=== PATIENT | female | born 1985 | race Caucasian/White ===

== ENCOUNTER → 2017-03-22 | Outpatient (CLI) | payer BC ==
--- NOTE | 2017-05-24 08:21 | CODING QUERY NO DIAGNOSIS ---
TREATMENT RENDERED WITHOUT A DIAGNOSIS To promote full compliance with coding requirements relating to patient care, physician participation is requested in all cases of automotive internet sales consultant uncertainty. Please assist us with providing a diagnosis/symptom for the test(s) below: A diagnosis/symptom was not documented on your Order. A valid diagnosis/symptom is required to bill all insurances. Please remember that we are unable to code a diagnosis of rule out, probable, possible, questionable, or suspected. Tests that require a diagnosis: DOS: 03/22/17 * PAP SMEAR DIAGNOSIS: Provider Signature: Date: Thank you Luna Mendez [facility] [employer] Once completed, please kindly fax back to [phone] For questions please call [phone]
== END | disposition home or self-care (01) ==
LOC: C.PATHSPEC 17:23
PROVIDERS: ATTEND Obstetrics & Gynecology
DX: N87.0 Mild cervical dysplasia (principal)

== ENCOUNTER → 2017-11-22 | Outpatient (CLI) | payer BC | END | disposition home or self-care (01) | LOC: C.LAB1850 09:46 | PROVIDERS: ATTEND Obstetrics & Gynecology | DX: Z34.92 Encounter for supervision of normal pregnancy, unspecified, second trimester (principal); Z3A.00 Weeks of gestation of pregnancy not specified ==

== ENCOUNTER 2018-04-24 07:57 | Inpatient (IN) ==
[2018-04-24] MEDS ORDERED: LACTATED RINGER'S 1,000 ML IV PRN ×3 (08:51→17:38)
[2018-04-24] MEDS ORDERED: OXYTOCIN 30 UNITS/500 ML BAG IV PRN ×2 (08:51→08:53)
[2018-04-24 09:28] LABS: Hematocrit (blood only) 38.4 % (37-47); Mean Platelet Volume 10.7 fL (7.4-10.4); Platelet Count 162 K/uL (130-400); RDW Coefficient of Variation 12.7 % (11.5-14.5); RDW Standard Deviation 44.6 fL (36.4-46.3); Red Blood Count 3.92 M/uL (4.2-5.4); White Blood Count 12.27 K/uL (4.8-10.8)
[2018-04-24 09:32] LABS: Mean Corpuscular Hgb Conc 33.9 g/dL (32-36)
[2018-04-24] MEDS: LACTATED RINGER'S 1,000 ML IV SCH ×3 (10:08→21:41)
--- NOTE | 2018-04-24 11:10 | History & Physical Report ---
Date of Service April 24, 2018 Assessment & Plan (1) Chronic hypertension affecting : 32yo @ 38 6/7 with cHTN for IOL Savage removed easily, start pitocin. OK for epidural if/when she desires. History of Present Illness Chief Complaint: IOL for cHTN Primary Care Provider: Licha Ambriz 32yo @ 38 6/7 for IOL due to cHTN. also complicated by LSIL. Rec'd savage balloon last night, still in place this morning. + movement, no vaginal bleeding, no leaking, no regular ctx. Allergies Allergy/AdvReac Type Severity Reaction Status Date / Time No Known Allergies Allergy Unverified 04/23/18 19:58 Home Medications Home Medications Medication Instructions Recorded Confirmed Type aspirin [Deandre Chewable Aspirin] 81 mg PO DAILY 04/23/18 04/24/18 History colesevelam [WelChol] 625 mg PO DAILY 04/23/18 04/24/18 History metoprolol succinate 50 mg PO DAILY 04/23/18 04/24/18 History vit-iron fum-folic ac 1 tab PO DAILY 04/23/18 04/24/18 History [ Vitamin] Patient History Medical History Hyperlipidemia since age 20 Hypertension unsure if hypertension is "real" pt says it may be situational. was originally put on Metoprolol for anxiety/palpitations LGSIL on Pap smear of cervix March 2017. Will have 6 week PP follow up Family History Father Heart attack Social History marital status: Single Current Living Situation: Parent and Family Feels Safe at Home: Yes Safety Concerns: Feels Safe At This Time Smoking Status: Never smoker Hx Alcohol Use: No Hx Substance Use: No Beliefs That Will Affect Care: None Preferred Language: Wallisian Communication Ability: Effective Naval Aircrewman Tactical Helicopter Required: No Review of Systems All systems reviewed & are unremarkable except as noted in HPI & below Physical Exam 2 Vital Signs (Past 24 Hours): Last Vital Signs Temp 36.4 C L 04/24/18 08:20 Pulse 76 04/24/18 10:32 Resp 20 04/24/18 08:20 BP 140/75 04/24/18 10:32 Physical Exam: Gen: AAOx3 NAD CV: RRR L: CTA Abd: soft, gravid, NTTP Ext: no edema SVE: savage removed with gentle tug. Cervix 2-3/50/-3 Small amount of bloody show. FHT: Cat 1 [place]: no ctx.
--- NOTE | 2018-04-24 13:30 | Obstetrical Progress Note ---
Date of Service April 24, 2018 Subjective Comfortable. FHT Cat 1. [place] Q 2 min SVE 3/70/-2 AROM clear fluid. Continue labor. Physical Exam 2 Vital Signs (Past 24 Hours): Last Vital Signs Temp 37.0 C 04/24/18 11:35 Pulse 77 04/24/18 12:36 Resp 20 04/24/18 12:35 BP 147/72 H 04/24/18 12:36
--- NOTE | 2018-04-24 16:16 | Anesthesiology Consultation ---
Date of Service April 24, 2018 Assessment & Plan Chart Review Chart Review: Patient NOT seen in Pre Admission Testing and Acceptable Risk for Labor Epidural Consults Requested Denies taking any blood thinner or having any h/o major bleeding disorder ASA ASA2 Proposed Anesthesia Anesthesia Type: Labor Epidural Risk / Benefits Reviewed With: PT / POA / Parent / Guardian, Accepts Plan and Informed Consent Obtained NPO Date Last Intake of Fluids: 04/24/18 Time Last Intake of Fluids: 16:15 Date Last Intake of Solids: 04/24/18 Time Last Intake of Solids: 07:30 History Height/Weight Height: 1.68 m Weight: 70.307 kg Allergies Allergy/AdvReac Type Severity Reaction Status Date / Time No Known Allergies Allergy Unverified 04/23/18 19:58 Medications Home Medications Medication Instructions Recorded Confirmed Last Taken aspirin [Deandre Chewable Aspirin] 81 mg PO DAILY 04/23/18 04/24/18 04/23/18 12:00 colesevelam [WelChol] 625 mg PO DAILY 04/23/18 04/24/18 04/23/18 09:00 metoprolol succinate 50 mg PO DAILY 04/23/18 04/24/18 04/23/18 22:30 vit-iron fum-folic ac 1 tab PO DAILY 04/23/18 04/24/18 04/23/18 20:00 [ Vitamin] Active Medications Generic Name Dose Route Start Last Admin Trade Name Freq PRN Reason Stop Dose Admin Lactated Ringer's 1,000 mls @ 125 mls/hr 04/24/18 09:00 04/24/18 10:08 Lr IV 04/26/18 08:59 125 mls/hr .Q8H STEPHANY Administration Oxytocin 30 units in 500 mls @ 13 mls/hr 04/24/18 08:53 04/24/18 15:30 Pitocin IV 05/24/18 08:52 1.02 units/hr .Q24H PRN 17 mls/hr Labor Induction/Augmentation Titration Protocol 0.78 UNITS/HR Beta Margie Beta Margie Taken Within 24 Hours: Yes Past Medical History Medical History Hyperlipidemia since age 20 Hypertension unsure if hypertension is "real" pt says it may be situational. was originally put on Metoprolol for anxiety/palpitations LGSIL on Pap smear of cervix March 2017. Will have 6 week PP follow up Past Family History Family History Father Heart attack Past Surgical History Pt denies any h/o previous anesthesia or surgeries Past Anesthesia History No Family Hx of Anesthesia Complications History of PONV No Motion Sickness Screening History of Motion Sickness: No Social History Smoking Status: Never smoker Do You Dip or Chew Tobacco: No Hx Alcohol Use: No Hx Substance Use: No Exercise / Class Metabolic Activity II 4-5 Yardwork/Stairs/Walk [place] Physical Exam Vital Signs Last Vital Signs Temp 36.6 C 04/24/18 14:15 Pulse 91 H 04/24/18 15:09 Resp 20 04/24/18 14:17 BP 143/79 H 04/24/18 15:09 ENMT Mouth: no TMJ abnormality and no TMJ clicking Thyromental Distance: > or= 3.5 Finger Breadths Mallampati Class: II Neck neck extension not limited Respiratory Auscultation: lungs clear to auscultation bilaterally Cardiovascular Rate/Rhythm: regular rate and regular rhythm Psychiatric Orientation: alert and oriented x 3 Testing Laboratory Results 04/24/18 09:14
[2018-04-24] MEDS ORDERED: BUPIVACAINE 0.25% 30 ML VIAL ONE (16:58)
[2018-04-24] MEDS ORDERED: ePHEDrine sulfate 50 MG/ML AMP ONE (16:58)
[2018-04-24] MEDS ORDERED: fentaNYL citrate 100 MCG/2 ML VIAL ONE (16:59)
[2018-04-24] MEDS ORDERED: fentaNYL 2MCG/ML ROPIV 1.25MG/ML 100 ML BAG EPI ONE (16:59)
[2018-04-24] MEDS ORDERED: ONDANSETRON INJ 2 MG/ML 2 ML VIAL IV PRN (17:38)
[2018-04-24] MEDS ORDERED: NALOXONE HCL 0.4 MG/1 ML VIAL/CARP IV PRN (17:38)
[2018-04-24] MEDS ORDERED: NALOXONE HCL 1 MG in SODIUM CHLORIDE 0.9% 1000ML 1,000 ML IV PRN (17:38)
[2018-04-24] MEDS ORDERED: NALBUPHINE HCL INJ 10 MG/ML AMP IV PRN (17:38)
[2018-04-24] MEDS ORDERED: fentaNYL 2MCG/ML ROPIV 1.25MG/ML 100 ML BAG EPI PRN (17:38)
[2018-04-24] MEDS ORDERED: PROMETHAZINE HCL 12.5 MG in SODIUM CHLORIDE 0.9% 50 ML IV PRN (17:38)
[2018-04-24] MEDS ORDERED: ePHEDrine sulfate 50 MG/ML AMP IV PRN (17:38)
[2018-04-24] MEDS ORDERED: DiphenhydrAMINE HCL 50 MG/ML VIAL IV PRN (17:38)
[2018-04-24] MEDS ORDERED: METOPROLOL SUCC 50MG EXT REL TAB PO ONE (20:00)
--- NOTE | 2018-04-24 21:27 | Obstetrical Progress Note ---
Date of Service April 24, 2018 Subjective Starting to feel constant pressure. FHT: variable/early decels [place]: Q 2 SVE: small anterior lip Ok to start to push when she feels urge. Physical Exam 2 Vital Signs (Past 24 Hours): Last Vital Signs Temp 36.8 C 04/24/18 19:06 Pulse 110 H 04/24/18 21:24 Resp 18 04/24/18 20:00 BP 139/72 04/24/18 21:09 Pulse Ox 96 04/24/18 21:24
--- NOTE | 2018-04-25 01:21 | Procedure Note ---
Vaginal Delivery Summary Date of Service April 25, 2018 Vaginal Delivery Summary Predelivery diagnoses: 32-year-old at 39 weeks, chronic hypertension Postdelivery diagnoses: Same Procedure: Spontaneous vaginal delivery, repair of first-degree perineal laceration and superficial left periurethral laceration Complications: None Estimated blood loss: 300 mL Surgeon: Dr. Go Findings: Viable female , Apgars 7 and 9. Weight pending, please see nursery records. Description of delivery: Patient progressed to complete with epidural anesthesia. She then began to push. She spontaneously vaginally delivered a viable female from the cephalic presentation. Head delivered in the left occiput anterior position, nuchal cord x1 was noted this was easily reduced. The anterior shoulder delivered followed by the posterior shoulder followed by the body. The baby was placed on mother's abdomen, and the cord was doubly clamped and cut. Cord blood was obtained for public cord banking donation. Cord blood was also obtained for the pathology lab. The placenta was then delivered spontaneously intact with a three-vessel cord. The bladder was drained using a red rubber catheter for 900 cc of clear yellow urine. The uterus and vagina were swept of all clots and debris. Pitocin was given. The cervix vagina and perineum were inspected and a first degree perineal laceration was noted and repaired in standard fashion with 3-0 Vicryl. Additionally, there was a small superficial area of bleeding to the left of the urethra, this was made hemostatic with a [id number] stitch of 3-0 Vicryl. Excellent hemostasis was observed, and sponge/needle/instrument counts were correct x2 at the conclusion of the delivery.
[2018-04-25] MEDS ORDERED: HYDROCORTISONE ACETATE 25 MG SUPP PR PRN (01:31)
[2018-04-25] MEDS ORDERED: SUPERCREAM 0.870% 15 GM JAR EXT PRN (01:31)
[2018-04-25] MEDS ORDERED: OXYCODONE/ACETAMINOPHEN 5mg/325mg TAB PO PRN (01:31)
[2018-04-25] MEDS ORDERED: ACETAMINOPHEN 325 MG TAB PO PRN (01:31)
[2018-04-25] MEDS ORDERED: IBUPROFEN 600 MG TAB PO PRN (01:31)
[2018-04-25] MEDS ORDERED: OXYTOCIN 30 UNITS/500 ML BAG IV PRN (01:31)
[2018-04-25] MEDS ORDERED: BENZOCAINE 20% AER SPR 82.5 GM CAN EXT PRN (01:31)
--- NOTE | 2018-04-25 08:40 | Anesthesia Procedure Note ---
Date of Service April 25, 2018 Anesthesia Post Epidural Note Vital Signs Vital Signs: Temp Pulse Pulse Resp BP BP Pulse Ox 04/25/18 03:45 36.9 C 106 H 16 132/76 04/25/18 03:30 36.9 C 106 H 18 132/76 04/25/18 03:28 106 H 132/76 04/25/18 03:22 104 H 134/67 04/25/18 03:07 99 H 127/62 04/25/18 02:52 95 H 132/62 04/25/18 02:38 101 H 138/69 04/25/18 02:35 101 H 18 138/69 04/25/18 02:22 103 H 116/56 L 04/25/18 02:07 101 H 118/67 04/25/18 02:05 101 H 18 118/67 04/25/18 01:52 99 H 116/64 04/25/18 01:50 99 H 18 116/64 04/25/18 01:37 97 H 130/75 04/25/18 01:35 97 H 18 130/75 04/25/18 01:22 100 H 124/72 04/25/18 01:20 100 H 18 124/72 04/25/18 01:07 105 H 124/86 04/25/18 01:05 37.0 C 18 04/25/18 01:03 114 H 161/74 H 04/25/18 00:59 111 H 86 L 04/25/18 00:58 107 H 89 L 04/25/18 00:54 103 H 100 04/25/18 00:52 110 H 144/79 H 04/25/18 00:49 109 H 100 04/25/18 00:44 109 H 99 04/25/18 00:39 115 H 98 04/25/18 00:37 100 H 141/84 H 04/25/18 00:34 106 H 98 04/25/18 00:29 96 H 97 04/25/18 00:24 96 H 96 04/25/18 00:20 98 H 94 04/25/18 00:19 102 H 93 04/25/18 00:15 92 H 85 L 04/25/18 00:14 88 97 04/25/18 00:09 90 97 04/25/18 00:08 88 126/81 04/25/18 00:04 91 H 94 04/25/18 00:03 99 H 91 04/24/18 23:59 88 96 04/24/18 23:56 91 H 87 L 04/24/18 23:54 90 97 04/24/18 23:52 93 H 126/59 L 04/24/18 23:50 98 H 94 04/24/18 23:49 97 H 96 04/24/18 23:44 95 H 95 04/24/18 23:39 99 H 75 L 04/24/18 23:38 89 94 04/24/18 23:37 96 H 125/66 04/24/18 23:34 96 H 98 04/24/18 23:30 36.9 C 98 H 20 93 04/24/18 23:29 95 H 97 04/24/18 23:24 91 H 96 04/24/18 23:23 88 130/77 04/24/18 23:21 98 H 93 04/24/18 23:19 94 H 94 04/24/18 23:15 92 H 94 04/24/18 23:14 92 H 95 04/24/18 23:09 96 H 95 04/24/18 23:08 106 H 94 04/24/18 23:04 103 H 99 04/24/18 23:01 100 H 94 04/24/18 22:59 97 H 96 04/24/18 22:56 106 H 94 04/24/18 22:54 99 H 96 04/24/18 22:53 99 H 134/74 04/24/18 22:49 100 H 95 04/24/18 22:45 91 H 94 04/24/18 22:44 101 H 94 04/24/18 22:39 111 H 94 04/24/18 22:37 93 H 130/66 04/24/18 22:34 104 H 92 04/24/18 22:29 104 H 98 04/24/18 22:24 103 H 132/79 93 04/24/18 22:19 100 H 97 04/24/18 22:14 99 H 95 04/24/18 22:10 96 H 94 04/24/18 22:09 89 94 04/24/18 22:08 98 H 124/68 04/24/18 22:05 95 H 94 04/24/18 22:04 94 H 94 04/24/18 22:00 89 94 01/03/19 21:59 92 H 94 04/24/18 21:54 90 94 04/24/18 21:53 89 125/66 04/24/18 21:49 93 H 95 04/24/18 21:44 95 H 95 04/24/18 21:42 96 H 94 04/24/18 21:39 114 H 93 04/24/18 21:37 97 H 131/63 04/24/18 21:36 100 H 94 04/24/18 21:34 103 H 96 04/24/18 21:30 18 04/24/18 21:29 104 H 96 04/24/18 21:24 110 H 96 04/24/18 21:23 114 H 90 04/24/18 21:19 104 H 97 04/24/18 21:18 104 H 94 04/24/18 21:14 106 H 97 04/24/18 21:09 105 H 139/72 96 04/24/18 21:04 114 H 95 04/24/18 21:03 130 H 94 04/24/18 21:00 37.0 C 18 04/24/18 20:59 104 H 97 04/24/18 20:55 109 H 94 04/24/18 20:54 99 H 96 04/24/18 20:52 104 H 130/60 04/24/18 20:49 101 H 96 04/24/18 20:44 103 H 95 04/24/18 20:39 98 H 96 04/24/18 20:38 100 H 132/60 04/24/18 20:34 99 H 96 04/24/18 20:29 98 H 95 04/24/18 20:24 111 H 129/71 96 04/24/18 20:19 110 H 95 04/24/18 20:14 107 H 96 04/24/18 20:09 106 H 96 04/24/18 20:08 114 H 126/65 04/24/18 20:04 114 H 97 04/24/18 20:02 119 H 91 04/24/18 20:00 18 04/24/18 19:59 104 H 96 04/24/18 19:54 101 H 95 04/24/18 19:53 93 H 129/75 04/24/18 19:49 102 H 96 04/24/18 19:44 98 H 96 04/24/18 19:39 104 H 97 04/24/18 19:38 106 H 125/74 04/24/18 19:34 105 H 97 04/24/18 19:29 93 H 96 04/24/18 19:24 102 H 97 04/24/18 19:23 109 H 127/67 04/24/18 19:19 108 H 96 04/24/18 19:14 114 H 97 04/24/18 19:09 121 H 96 04/24/18 19:07 108 H 137/70 04/24/18 19:06 36.8 C 20 04/24/18 19:04 95 H 98 04/24/18 18:59 97 H 96 04/24/18 18:54 114 H 95 04/24/18 18:52 104 H 134/74 04/24/18 18:49 93 H 95 04/24/18 18:47 101 H 91 04/24/18 18:44 99 H 95 04/24/18 18:39 95 H 98 04/24/18 18:38 96 H 131/72 04/24/18 18:34 92 H 98 04/24/18 18:29 102 H 97 04/24/18 18:25 104 H 94 04/24/18 18:24 100 H 134/78 97 04/24/18 18:19 110 H 96 04/24/18 18:14 103 H 93 04/24/18 18:13 103 H 93 04/24/18 18:09 89 97 04/24/18 18:08 90 120/64 04/24/18 18:04 101 H 97 04/24/18 17:59 82 98 04/24/18 17:54 84 98 04/24/18 17:51 85 128/67 04/24/18 17:49 97 H 96 04/24/18 17:46 95 H 124/62 04/24/18 17:44 102 H 96 04/24/18 17:43 102 H 133/93 04/24/18 17:42 106 H 92 04/24/18 17:39 95 H 99 04/24/18 17:35 96 H 132/57 L 04/24/18 17:34 107 H 97 04/24/18 17:33 102 H 122/60 04/24/18 17:31 88 137/69 04/24/18 17:29 96 H 136/65 98 04/24/18 17:27 95 H 140/79 04/24/18 17:24 100 H 137/72 98 04/24/18 16:25 77 129/76 04/24/18 16:24 36.6 C 20 04/24/18 15:09 91 H 143/79 H 04/24/18 14:18 75 134/74 04/24/18 14:17 20 04/24/18 14:15 36.6 C 20 04/24/18 13:29 80 141/83 H 04/24/18 12:36 77 147/72 H 04/24/18 12:35 20 04/24/18 11:36 72 118/71 04/24/18 11:35 37.0 C 20 04/24/18 10:32 76 140/75 04/24/18 10:31 20 04/24/18 10:09 76 131/73 04/24/18 09:32 86 127/73 04/24/18 09:31 20 04/24/18 08:53 81 120/72 04/24/18 08:52 20 Notes Mental Status: alert / awake / arousable and participated in evaluation Nausea / Vomiting: adequately controlled Pain: adequately controlled Airway Patency, RR, SpO2: stable & adequate BP & HR: stable & adequate Hydration State: stable & adequate Neuraxial Anesthesia: was administered and sensory block is resolving Anesthetic Complications: no major complications apparent and Pt Satisfied with anesthetic care Epidural: Removed without complications and With tip intact
[2018-04-25] MEDS ORDERED: NON-FORMULARY MEDICATION (Prenatal Vit-Iron Fum-Folic Ac [Prenatal Vitamin] 1 TAB) PO SCH (09:00)
[2018-04-25] MEDS: PRENATAL VITAMIN 1 TAB PO SCH (09:10)
[2018-04-25] MEDS: DOCUSATE SODIUM 100 MG CAP PO SCH ×2 (09:10→20:35)
[2018-04-25] MEDS: FERROUS SULFATE 325 MG TAB PO SCH (09:10)
[2018-04-25] MEDS ORDERED: METOPROLOL SUCC 50MG EXT REL TAB PO SCH (21:00)
--- NOTE | 2018-04-26 06:31 | Obstetrical Progress Note ---
Date of Service <Juve Aguilar DO - Last Filed: 04/26/18 06:44> April 26, 2018 Assessment & Plan <Juve Aguilar DO - Last Filed: 04/26/18 06:44> (1) Vaginal delivery: Continue routine post- care, encourage and ambulation PPD #1 (2) Chronic hypertension affecting : continue with Metroprolol Succinate 50mg PO qHS Last recorded BP Normotensive at 119/77 Day #:: 1 Subjective <Juve Aguilar - Last Filed: 04/26/18 06:44> Ambulation: ambulating normally Voiding: no voiding problems Passing Gas:: Yes Diet Tolerance:: regular diet Lochia:: Small Feeding Type:: breast feeding Current Pain Level(1-10): 0 Lisa states she is doing well this morning, she has no acute complaints or concerns, no acute events overnight. She states she is without difficulty. She denies fever, chills, chest pain, shortness of breath, breast pain, headache. She has no complaints of pain this morning. No nausea or vomiting. Physical Exam <Juve Aguilar DO - Last Filed: 04/26/18 06:44> Vital Signs (Past 24 Hours) Last Vital Signs Temp 36.5 C 04/25/18 23:25 Pulse 78 04/25/18 23:25 Resp 16 04/25/18 23:25 BP 119/77 04/25/18 23:25 Pulse Ox 99 04/25/18 23:25 Constitutional WD/WN, vitals as above cooperative Respiratory normal respiratory effort, lungs clear to auscultation Cardiovascular RRR, no murmur, no edema Gastrointestinal (Abdomen) Percussion/Palpation: abdomen soft; abdomen nontender fundus firm, non-tender, 3cm below umbilicus Skin no rashes, warm and dry Neurologic moves all extremities and awake Psychiatric Eye Contact: good eye contact Affect: euthymic affect Results & Data <Juve Aguilar DO - Last Filed: 04/26/18 06:44> Medications Administered Benzocaine (Dermoplast Pain Relieving [place]) 1 appln EXT PRN PRN PRN Reason: Perineal Discomfort Stop: 05/25/18 01:30 Last Admin: 04/25/18 03:49 Dose: 82.5 appln Docusate Sodium (Colace) 100 mg PO BID STEPHANY Stop: 05/25/18 08:59 Last Admin: 04/25/18 20:35 Dose: 100 mg Admin: 04/25/18 09:10 Dose: 100 mg Ferrous Sulfate (Feosol) 325 mg PO QAM STEPHANY Stop: 05/25/18 08:59 Last Admin: 04/25/18 09:10 Dose: 325 mg Metoprolol Succinate (Toprol Xl) 50 mg PO HS STEPHANY Stop: 05/25/18 20:59 Last Admin: 04/25/18 20:35 Dose: 50 mg Prenat Multivit/[place]/Iron/Folic Ac ( Vitamin) 1 tab PO QAM STEPHANY Stop: 05/25/18 08:59 Last Admin: 04/25/18 09:10 Dose: 1 tab <Regina Mayer MD, FACOG - Last Filed: 04/26/18 07:10> Co-Signing Physician Notes Resident Physician Supervision Note: I interviewed and examined the patient. Discussed with Dr. Aguilar and agree with findings and plan as documented in the note. Any exceptions or clarifications are listed here: Doing well. Routine pp care. Documented By: Regina Mayer MD, FACOG
[2018-04-26 06:42] LABS: Hematocrit (blood only) 32.4 % (37-47); Hemoglobin 10.6 g/dL (12.0-16.0)
[2018-04-26] MEDS: DOCUSATE SODIUM 100 MG CAP PO SCH (07:33)
[2018-04-26] MEDS: PRENATAL VITAMIN 1 TAB PO SCH (07:33)
[2018-04-26] MEDS: FERROUS SULFATE 325 MG TAB PO SCH (07:33)
[2018-04-26] MEDS ORDERED: BISACODYL 5 MG TABEC PO SCH (20:00)
== END 2018-04-26 21:20 | disposition home or self-care (01) | DRG 807 ==
LOC: 4S1 07:57 → 4S2 04-25 04:02

== ENCOUNTER 2024-07-02 08:15 | Inpatient (IN) ==
[2024-07-02] MEDS ORDERED: LIDOCAINE 1% LOCAL 20 ML VIAL INFIL PRN (09:18)
[2024-07-02] MEDS ORDERED: OXYTOCIN 30 UNITS/NSS 30 UNITS/500 ML BAG IV PRN ×2 (09:18→20:13)
[2024-07-02 09:42] LABS: Hematocrit (blood only) 34.6 % (37.0-47.0); Hemoglobin 11.5 g/dl (12.0-16.0); Mean Corpuscular Hemoglobin 29.9 pg (25.0-34.0); Mean Corpuscular Hgb Conc 33.2 g/dL (32.0-36.0); Mean Corpuscular Volume 90.1 fL (80.0-100.0); Mean Platelet Volume 10.7 fL (9.4-12.4); Platelet Count 198 K/uL (130-400); RDW Coefficient of Variation 12.6 % (11.5-14.5); RDW Standard Deviation 41.1 fL (36.4-46.3); Red Blood Count 3.84 M/uL (4.20-5.40)
--- NOTE | 2024-07-02 09:52 | History & Physical Report ---
Date of Service July 02, 2024 Assessment & Plan (1) Encounter for induction of labor: (2) Chronic hypertension during , antepartum: (3) IUGR (intrauterine growth restriction) affecting care of mother: Manoj Gonzalez is a 38yo at 38w6d admitted for IOL. Feeling well, VSS. Reyes bulb placed this AM around 9:30 Pitocin AROM when indicated Hgb: 11.5, asymptomatic. Continue monitoring tracing, currently Category 1 Admission and Anticipated Discharge Date Admission Date: July 02, 2024 History of Present Illness Chief Complaint: IOL Primary Care Provider: Licha Ambriz Lisa is a 38yo at 38w6d admitted for IOL. Currently feeling well, not in acute distress. Denies any significant complications this . Endorses prior was also uncomplicated. Endorses baby moving regularly, not feeling many contractions yet. Denies any significant vaginal bleeding or discharge throughout . Denies any significant abdominal pain or trauma during . Denies any recent illness nor fever, body aches, chills, sweats, cough, or sore throat. Denies any tobacco, vaping, cannabis, or other drug use during . Denies any recent headaches, vision changes, SOB, chest pain, LE pain/numbness/tingling. GBS-, Rh+, T. pallidum negative. Allergies Allergy/AdvReac Type Severity Reaction Status Date / Time No Known Allergies Allergy Unverified 07/01/24 10:06 Home Medications Medication Instructions Recorded Confirmed Type colesevelam 625 mg tablet (WelChol) 625 mg PO DAILY 04/23/18 07/02/24 History metoprolol succinate 50 mg 50 mg PO DAILY 04/23/18 07/02/24 History tablet,extended release 24 hr vitamins-iron fumarate 27 1 tab PO DAILY 04/23/18 07/02/24 History mg iron-folic acid 0.8 mg tablet ( Vitamin) breast pump #1 ea 05/13/24 07/01/24 Rx aspirin 81 mg tablet 81 mg PO DAILY 07/02/24 07/02/24 History Patient History Medical History (Updated 07/02/24 @ 09:56 by Fernando Avila DO) Gallop rhythm Encounter for annual routine gynecological examination Hyperlipidemia since age 20 Hypertension unsure if hypertension is "real" pt says it may be situational. was originally put on Metoprolol for anxiety/palpitations Dysplasia of cervix, low grade (LEONEL 1) Chronic hypertension affecting Surgical History H/O colposcopy with cervical biopsy 2017, lgsil, [place] 1. Family History Father Myocardial infarction Aunt Breast cancer Denies family history of Ovarian cancer Colorectal cancer Social History (Updated 07/02/24 @ 08:27 by Bhavana Uribe, JI) Smoking Status: Never smoker Do You Dip or Chew Tobacco: No; Hx Alcohol Use: No Hx Substance Use: No Preferred Language: Com[place]an Communication Ability: Effective Visual Impairment: Limited Hearing Ability: Normal Animal Ecologist Required: No Beliefs That Will Affect Care: None marital status: Single marital status details: FOB:Julissa Monk (47) [phone] Current Living Situation: Family and Significant Other Current Living Situation Comment: Lives with FOB and daughter current occupational status: employed current occupation: [employer] How many Children do You have: 1 Other Information That Helps Us Care for You: No Feels Safe at Home: Yes Safety Concerns: Feels Safe At This Time Diet Comment: No red meat, fish on Fridays caffeine: Yes Dental Care, Regularly: Yes Seatbelt Use: always Gender Identity: Female Assistive Devices: Glasses Physical Exam Physical Exam: Gen: A&Ox3, appearing nontoxic and in no acute distress HEENT: EOM intact, moist mucus membranes CV: RRR, +s1/s2, no m/r/g Resp: clear to auscultation b/l, good equal air entry, no wheeze/rales/rhonchi GI/abd: gravid, hypoactive BS, nontender to palpation, pads in place Cervical: 1 | 50 | -2, est weight 5-6lbs LE: no edema b/l, calves nontender to palpation b/l Neuro: speech intact, no facial droop, wiggles toes on command Psych: euthymic, mood-affect congruence, normal speech rate and tone FHR: 140 baseline, moderate variability, accels present, decels absent Results & Data Vital Signs (Past 12 Hours) Vital Signs Temp Pulse Resp BP 07/02/24 08:54 37.3 C 95 H 20 142/82 H Supervising Physician Co-Signing Physician Notes Resident Physician Supervision Note: I was present with Dr. Avila during the history and exam. I discussed the case with the resident and agree with the findings and plan as documented in the note. Any exceptions or clarifications are listed here: 38yo @ 38 09/26, IOL for cHTN, IUGR. Reyes bulb placed on admission 35cc sterile water, pitocin started. Documented By: Ofe Go, Resident Activity Tracking Resident Involvement: Resident Care Provided Care Provided: OB Delivery (3) IUGR (intrauterine growth restriction) affecting care of mother Fetus number: single or unspecified fetus Trimester: third trimester Qualified Code(s): O36.5930 - Maternal care for other known or suspected poor growth, third trimester, not applicable or unspecified
[2024-07-02 09:57] LABS: Albumin Globulin Ratio 1.1 (0.9-2); Albumin Level 3.6 gm/dl (3.4-5.0); BUN Creatinine Ratio 15.6 (10-20); Bilirubin,Total 0.3 mg/dl (0.2-1.0); Calcium 9.2 mg/dl (8.6-10.3); Creatinine Clr Calc Pharmacy 125.3 ml/min; Globulin 3.2 gm/dl (2.5-4.0); Potassium 3.9 mmol/L (3.5-5.1); Total Protein 6.8 gm/dl (6.0-8.3)
[2024-07-02] MEDS: LACTATED RINGER'S 1,000 ML IV PRN (10:01)
[2024-07-02] MEDS: OXYTOCIN 30 UNITS/NSS 30 UNITS/500 ML BAG IV PRN (10:04)
[2024-07-02] MEDS ORDERED: ePHEDrine sulfate 50 MG/ML AMP IV PRN (17:15)
[2024-07-02] MEDS ORDERED: LIDOCAINE 2%/EPINEPHRINE 1:200,000 20 ML PF EPI STA (17:15)
[2024-07-02] MEDS ORDERED: SODIUM CHLORIDE 0.9% PF INJ 10 ML VIAL EPI PRN (17:15)
[2024-07-02] MEDS ORDERED: NALOXONE HCL 0.4 MG/1 ML VIAL/CARP IV PRN (17:15)
[2024-07-02] MEDS ORDERED: ONDANSETRON INJ 2 MG/ML 2 ML VIAL IV PRN (17:15)
[2024-07-02] MEDS ORDERED: ROPIVACAINE 0.5% PF 5 MG/ML 20 ML VIAL EPI PRN (17:15)
[2024-07-02] MEDS ORDERED: BUPIVACAINE 0.25% PF 30 ML VIAL EPI PRN (17:15)
[2024-07-02] MEDS ORDERED: fentaNYL citrate PF 100 MCG/2 ML VIAL EPI STA (17:15)
[2024-07-02] MEDS ORDERED: NALBUPHINE HCL INJ 10 MG/ML AMP IV PRN (17:15)
[2024-07-02] MEDS ORDERED: NALOXONE HCL 1 MG in SODIUM CHLORIDE 0.9% 1,000 ML IV PRN (17:15)
[2024-07-02] MEDS ORDERED: LIDOCAINE 2% MPF LOCAL 5 ML VIAL EPI PRN (17:15)
[2024-07-02] MEDS ORDERED: diphenhydrAMINE 50 MG/ML VIAL IV PRN (17:15)
[2024-07-02] MEDS ORDERED: BUPIVACAINE 0.25% PF 30 ML VIAL EPI STA (17:15)
[2024-07-02] MEDS ORDERED: fentANYL 2 MCG/ML BUPIVacaine 0.125%-NSS 100ML BAG EPI PRN (17:15)
[2024-07-02] MEDS ORDERED: fentaNYL citrate PF 100 MCG/2 ML VIAL EPI PRN (17:15)
--- NOTE | 2024-07-02 17:17 | Anesthesiology Consultation ---
Date of Service July 02, 2024 Assessment & Plan (1) Encounter for pre-operative examination: Chart Review Chart Review: Patient NOT seen in Pre Admission Testing and Acceptable Risk for Labor Epidural Consults Requested none History Height/Weight Height: 5 ft 6 in Weight: 74.389 kg Allergies Allergy/AdvReac Type Severity Reaction Status Date / Time No Known Allergies Allergy Unverified 07/01/24 10:06 Medications Home Medications Medication Instructions Recorded Confirmed Last Taken colesevelam 625 mg tablet (WelChol) 625 mg PO DAILY 04/23/18 07/02/24 07/01/24 21:00 metoprolol succinate 50 mg 50 mg PO DAILY 04/23/18 07/02/24 07/01/24 21:00 tablet,extended release 24 hr vitamins-iron fumarate 27 1 tab PO DAILY 04/23/18 07/02/24 07/01/24 21:00 mg iron-folic acid 0.8 mg tablet ( Vitamin) breast pump #1 ea 05/13/24 07/01/24 Unknown aspirin 81 mg tablet 81 mg PO DAILY 07/02/24 07/02/24 07/01/24 21:00 Active Medications Generic Name Dose Route Start Last Admin Trade Name Freq PRN Reason Stop Dose Admin Lactated Ringer's 1,000 mls @ 125 mls/hr 07/02/24 09:18 07/02/24 16:55 Lr IV 07/03/24 09:17 999 mls/hr .Q8H PRN Administration L&D Protocol Protocol Oxytocin 30 units in 500 mls @ 17 mls/hr 07/02/24 09:18 07/02/24 14:30 Pitocin 30 Units/Nss IV 07/04/24 09:17 1.02 units/hr .Q24H PRN 17 mls/hr Labor Induction/Augmentation Titration Protocol 1.02 UNITS/HR Past Medical History Medical History (Updated 07/02/24 @ 17:17 by Eulogio Oates MD) Encounter for pre-operative examination Gallop rhythm Encounter for annual routine gynecological examination Hyperlipidemia since age 20 Hypertension unsure if hypertension is "real" pt says it may be situational. was originally put on Metoprolol for anxiety/palpitations Dysplasia of cervix, low grade (BRANNON 1) Chronic hypertension affecting Exercise / Class Metabolic Activity II 4-5 Yardwork/Stairs/Walk [place] Past Family History Family History Father Myocardial infarction Aunt Breast cancer Denies family history of Ovarian cancer Colorectal cancer Past Surgical History Surgical History H/O colposcopy with cervical biopsy 2017, lgsil, brannon 1. Social History Smoking Status: Never smoker Do You Dip or Chew Tobacco: No Hx Alcohol Use: No Hx Substance Use: No substance use type: does not use Physical Exam Vital Signs Last Vital Signs Temp 36.9 C 07/02/24 15:53 Pulse 98 H 07/02/24 16:53 Resp 20 07/02/24 15:53 BP 142/74 H 07/02/24 16:53 Testing Laboratory Results 07/02/24 09:29 07/02/24 09:29
--- NOTE | 2024-07-02 17:33 | Labor Progress Brief Note ---
Date of Service July 02, 2024 Subjective Uncomfortable. Reyes bulb in vagina. Would like epidural. FHT Cat 1 [place] Q 2 SVE 6-7//-1 Assessment & Plan Admission and Anticipated Discharge Date Admission Date: July 02, 2024 Results & Data Vital Signs (Past 12 Hours) Vital Signs Temp Pulse Resp BP Pulse Ox 07/02/24 17:27 118 H 98 07/02/24 16:53 98 H 142/74 H 07/02/24 15:53 36.9 C 86 20 117/66 07/02/24 14:53 86 114/63 07/02/24 13:54 93 H 20 120/67 07/02/24 12:53 88 135/75 07/02/24 11:52 36.7 C 96 H 20 135/67 07/02/24 11:40 82 119/70 07/02/24 11:26 80 118/66 07/02/24 11:11 82 130/59 L 07/02/24 10:55 81 123/66 07/02/24 10:40 87 130/65 07/02/24 10:26 91 H 128/77 07/02/24 10:11 83 119/61 07/02/24 08:54 37.3 C 95 H 20 142/82 H Coding Level of Care Code None
[2024-07-02] MEDS: fentANYL 2 MCG/ML BUPIVacaine 0.125%-NSS 100ML BAG ONE (17:50)
[2024-07-02] MEDS: BUPIVACAINE 0.25% PF 30 ML VIAL ONE (17:52)
[2024-07-02] MEDS: fentaNYL citrate PF 100 MCG/2 ML VIAL ONE (17:53)
[2024-07-02] MEDS: SODIUM CHLORIDE 0.9% PF INJ 10 ML VIAL EPI STA (17:53)
[2024-07-02] MEDS: LIDOCAINE 2%/EPINEPHRINE 1:200,000 20 ML PF ONE (17:54)
[2024-07-02] MEDS: SODIUM CHLORIDE 0.9% PF INJ 10 ML VIAL ONE (18:32)
--- NOTE | 2024-07-02 19:45 | Delivery Summary ---
Vaginal Delivery Summary Date of Service July 02, 2024 Vaginal Delivery Summary and 1st Degree LAC Vaginal Delivery Summary: Pre-delivery diagnoses: 38yo @ 38 6/7, IOL for cHTN and IUGR, AMA Post-delivery diagnoses: same Procedure: spontaneous vaginal delivery Surgeon: Ofe Go DO Complications: none Findings: Viable female . Apgars: 9/9. Weight pending, please see nursery records Estimated QBL: 54cc Description of delivery: The patient progressed to complete with epidural anesthesia. She then began to push. She spontaneously vaginally delivered a viable from the cephalic presentation. The head delivered in MAURO position. The anterior shoulder delivered, followed by the posterior shoulder, followed by the body. Nuchal cord, delivered through. The baby was placed on mother's abdomen and a spontaneous cry was heard. Delayed cord clamping was employed, and the cord was doubly clamped and cut. Cord blood was obtained. The placenta was delivered spontaneously intact with a 3-vessel cord. The uterus and vagina were swept of clots and debris. IV pitocin was given. The uterus became firm. The cervix, vagina, and perineum were inspected and 1st degree perineal laceration noted and repaired with 3-0 Vicryl. Excellent hemostasis was observed. The mother and baby are recovering in stable and good condition in the room. Sponge, needle and instrument counts were correct x 2. Ofe Go DO [facility] Vaginal Delivery Charge Vaginal Delivery Codes: 25215 global code for the antepartum, delivery, and post- Delivery Type Details: and 1st Degree LAC
[2024-07-02] MEDS ORDERED: IBUPROFEN 600 MG TAB PO PRN (20:13)
[2024-07-02] MEDS ORDERED: oxyCODONE/ACETAMINOPHEN 5mg/325mg TAB PO PRN (20:13)
[2024-07-02] MEDS ORDERED: HYDROCORTISONE ACETATE 25 MG SUPP PR PRN (20:13)
[2024-07-02] MEDS ORDERED: ACETAMINOPHEN 325 MG TAB PO PRN (20:13)
[2024-07-02] MEDS ORDERED: bisacodyL 10 MG SUPP PR PRN (20:13)
--- NOTE | 2024-07-02 20:37 | Anesthesia Procedure Note ---
Date of Service July 02, 2024 Anesthesia Post Epidural Note Vital Signs Vital Signs: Temp Pulse Resp BP Pulse Ox 36.8 C 103 H 18 137/74 87 L 07/02/24 19:02 07/02/24 20:33 07/02/24 19:48 07/02/24 20:33 07/02/24 19:13 Pain Intensity Abdomen: Pain Intensity: 0 Notes Mental Status: alert / awake / arousable and participated in evaluation Patient Amnestic to Procedure: No Nausea / Vomiting: adequately controlled Pain: adequately controlled Airway Patency, RR, SpO2: stable & adequate BP & HR: stable & adequate Hydration State: stable & adequate Neuraxial Anesthesia: was administered and sensory block is resolving Anesthetic Complications: no major complications apparent and Pt Satisfied with anesthetic care Epidural: Removed without complications and With tip intact
[2024-07-02] MEDS: BENZOCAINE 20% SPRY 85 APPLN/85 GM CAN EXT PRN (21:29)
[2024-07-02] MEDS: DOCUSATE SODIUM 100 MG CAP PO SCH (21:30)
[2024-07-02] MEDS: ePHEDrine sulfate 50 MG/ML AMP ONE (21:33)
[2024-07-02] MEDS: DIPHTHER/TETAN/PERTUS Vaccine (Tdap, Adol/Adult) 0.5mL IM ONE (21:33)
[2024-07-03] MEDS ORDERED: Nursing to Pharmacy Communication SCH (03:00)
--- NOTE | 2024-07-03 06:07 | Obstetrical Progress Note ---
Date of Service July 03, 2024 Assessment & Plan (1) state: (2) Perineal laceration during delivery: Plan Lisa is a day 1 s/p with small 1st deg perineal laceration. Feels well today, VSS Continue care Encourage ambulation and Pain control with ibuprofen as needed Consider Hep B immunization Hgb: 11.5 on 07/02, asymptomatic Home today at 24h or tomorrow Follow up with Dr. Go in 6wks Admission and Anticipated Discharge Date Admission Date: July 02, 2024 Supervising Physician Co-Signing Physician Notes Resident Physician Supervision Note: I interviewed and examined the patient. Discussed with Dr. Avila and agree with findings and plan as documented in the note. Any exceptions or clarifications are listed here: PPD#1 doing well. DC desired, plan for tonight. Reviewed instructions and followup 6w PP. Documented By: Ofe Go, DO Subjective Lisa is a day 1 s/p with small 1st deg perineal laceration. Feeling: good Ambulation: yes Void: urinating and passing gas, no BM yet Lochia: steady but small Diet: tolerating Feeding: , no concerns at this time Sx: denies Physical Exam Physical Exam: Constitutional: WD/WN, vitals as above GI/abd: +BS, abdomen soft, fundus firm palpable at umbilicus, mild soreness to palpation LE: no significant swelling, calves nontender to palpation b/l Psychiatric: A&Ox3, euthymic Results & Data Vital Signs (Past 12 Hours) Vital Signs Temp Pulse Pulse Resp BP BP Pulse Ox 07/03/24 03:50 36.6 C 91 H 18 136/87 98 07/03/24 00:35 36.7 C 94 H 18 132/83 07/02/24 22:15 37.0 C 112 H 18 150/90 H 07/02/24 21:30 18 07/02/24 21:30 117 H 146/81 H 07/02/24 21:18 18 07/02/24 21:18 107 H 133/75 07/02/24 21:03 114 H 136/80 07/02/24 20:48 16 07/02/24 20:48 100 H 137/74 07/02/24 20:33 16 07/02/24 20:33 103 H 137/74 07/02/24 20:18 18 07/02/24 20:18 100 H 130/55 L 07/02/24 20:03 16 07/02/24 20:03 102 H 132/64 07/02/24 19:48 18 07/02/24 19:48 102 H 132/64 07/02/24 19:18 125 H 113/54 L 07/02/24 19:13 112 H 87 L 07/02/24 19:10 112 H 94 07/02/24 19:07 107 H 99 07/02/24 19:03 106 H 130/66 07/02/24 19:02 36.8 C 18 07/02/24 19:02 105 H 99 07/02/24 18:57 112 H 99 07/02/24 18:52 99 H 98 07/02/24 18:48 105 H 126/57 L 07/02/24 18:47 102 H 98 07/02/24 18:42 107 H 98 07/02/24 18:37 106 H 96 07/02/24 18:33 100 H 125/59 L 07/02/24 18:32 98 07/02/24 18:32 101 H 07/02/24 18:32 105 H 90 07/02/24 18:27 102 H 97 07/02/24 18:22 93 H 97 07/02/24 18:21 111 H 93 07/02/24 18:18 100 H 132/62 07/02/24 18:17 100 H 97 07/02/24 18:12 103 H 97 O2 Del Method 07/03/24 03:50 Room Air 07/03/24 00:35 Room Air 07/02/24 22:15 Room Air 07/02/24 21:30 07/02/24 21:30 07/02/24 21:18 07/02/24 21:18 07/02/24 21:03 07/02/24 20:48 07/02/24 20:48 07/02/24 20:33 07/02/24 20:33 07/02/24 20:18 07/02/24 20:18 07/02/24 20:03 07/02/24 20:03 07/02/24 19:48 07/02/24 19:48 07/02/24 19:18 07/02/24 19:13 07/02/24 19:10 07/02/24 19:07 07/02/24 19:03 07/02/24 19:02 07/02/24 19:02 07/02/24 18:57 07/02/24 18:52 07/02/24 18:48 07/02/24 18:47 07/02/24 18:42 07/02/24 18:37 07/02/24 18:33 07/02/24 18:32 07/02/24 18:32 07/02/24 18:32 07/02/24 18:27 07/02/24 18:22 07/02/24 18:21 07/02/24 18:18 07/02/24 18:17 07/02/24 18:12 Resident Activity Tracking Resident Involvement: Resident Care Provided Care Provided: OB Delivery (2) Perineal laceration during delivery Perineal laceration degree: first degree Qualified Code(s): O70.0 - First degree perineal laceration during delivery
[2024-07-03 07:20] LABS: Hematocrit (blood only) 30.9 % (37.0-47.0); Hemoglobin 10.3 g/dl (12.0-16.0)
[2024-07-03] MEDS: PRENATAL VITAMIN 1 TAB PO SCH (08:13)
[2024-07-03] MEDS ORDERED: METOPROLOL SUCC 50MG EXT REL TAB PO SCH (09:00)
[2024-07-03 20:40] VITALS: BP 113/75; PULSE 84; RESP 18; TEMP 98.1; O2SAT 97
[2024-07-03] MEDS: bisacodyL 5 MG TABEC PO SCH (20:55)
[2024-07-03] MEDS: COLESEVELAM HCL PO SCH (21:55)
[2024-07-03] MEDS: METOPROLOL SUCC 50MG EXT REL TAB PO SCH (21:55)
== END 2024-07-03 21:48 | disposition home or self-care (01) | DRG 806 ==
LOC: 4S1 08:15 → 4E2 22:12
DX: Z37.0 Single live birth; O36.5930 Maternal care for other known or suspected poor fetal growth, third trimester, not applicable or unspecified; O10.92 Unspecified pre-existing hypertension complicating childbirth; O70.0 First degree perineal laceration during delivery; O69.81X0 Labor and delivery complicated by cord around neck, without compression, not applicable or unspecified; Z3A.38 38 weeks gestation of pregnancy